=== PATIENT | female | born 1980 | race Caucasian/White ===

== ENCOUNTER → 2017-12-16 | Outpatient (CLI) | payer OTHER ==
--- NOTE | 2017-12-16 08:16 | US ---
EXAMINATION TYPE: US pelvic complete DATE OF EXAM: 12/16/2017 COMPARISON: NONE CLINICAL HISTORY: R10.9 Abdominal Pain. Left pelvic pain for 1 month. Ablation 10 years ago. Tubal li gation 11 years ago TECHNIQUE: Transvaginal (TV) and Transabdominal (TA) . Transabdominal sonographic images of the pel vis were acquired. Transvaginal sonographic images were medically necessary to better assess the fol lowing anatomy: endometrium and ovaries Date of LMP: 10-11 years ago EXAM MEASUREMENTS: Uterus: 9.0 x 4.0 x 5.5 cm Endometrial Stripe: 0.5 cm Right Ovary: unable to visualize Left Ovary: 4.9 x 2.6 x 2.4 cm 1. Uterus: Anteverted Nabothian cysts 2. Endometrium: anechoic area = 1.0 x 0.5 x 0.6cm 3. Right Ovary: Obscured by overlying bowel gas 4. Left Ovary: cystic areas with largest = 2.2 x 2.0 x 2.2cm 5. Bilateral Adnexa: free fluid adjacent to left ovary 6. Posterior cul-de-sac: free fluid IMPRESSION: There is a small amount of free fluid. Nabothian cysts are noted. Small amount of fluid i s present along the endometrium. Consider follow-up, [facility] consult. Left ovarian cystic lesion.
--- NOTE | 2017-12-16 08:20 | US ---
EXAMINATION TYPE: US abdomen complete DATE OF EXAM: 12/16/2017 COMPARISON: NONE CLINICAL HISTORY: R10.9 Abdominal Pain. LLQ pain, constipation, bloating EXAM MEASUREMENTS: Liver Length: 17.8 cm Gallbladder Wall: 0.3 cm CBD: 0.8 cm Spleen: 10.4 cm Right Kidney: 11.1 x 4.1 x 4.6 cm Left Kidney: 10.8 x 4.9 x 5.7 cm Pancreas: visualized portions appear wnl, limited evaluation due to overlying bowel content Liver: upper limits of normal Gallbladder: no evidence of stones Evidence for sonographic Gayle's sign: no CBD: dilated Spleen: wnl Right Kidney: no evidence of hydronephrosis Left Kidney: no evidence of hydronephrosis Upper IVC: wnl Abd Aorta: visualized portions appear wnl The liver is homogenous. The intrahepatic portion of the IVC and proximal abdominal aorta are within normal limits. There is no evidence of cholelithiasis. Common bile duct is unremarkable. The visu alized portions of the pancreas are homogenous. The spleen is unremarkable. Kidneys are symmetric a nd free of hydronephrosis. No renal lesions are seen. IMPRESSION: Somewhat limited exam. Suspect liver is enlarged. Common bile duct is dilated. Consider g astroenterology consult.
== END | disposition home or self-care (01) ==
LOC: RADUSWWP 07:02
PROVIDERS: ATTEND Family Medicine
DX: K83.8 Other specified diseases of biliary tract (principal); N88.8 Other specified noninflammatory disorders of cervix uteri; N83.202 Unspecified ovarian cyst, left side
CPT/HCPCS: 76700; 76856

== ENCOUNTER → 2019-08-03 | Outpatient (CLI) | payer OTHER ==
--- NOTE | 2019-08-03 13:42 | US ---
EXAMINATION TYPE: US transvaginal DATE OF EXAM: 08/03/2019 COMPARISON: Pelvic ultrasound December 16, 2017 CLINICAL HISTORY: N83.209 Unspecified ovarian cyst, unspecified side. TECHNIQUE: Transvaginal (TV). Date of LMP: Patient had ablation 7 years prior EXAM MEASUREMENTS: Uterus: 8.9 x 4.3 x 4.7 cm Endometrial Stripe: 0.4 cm Right Ovary: obscured by overlying bowel gas Left Ovary: 2.1 x 1.1 x 1.1 cm 1. Uterus: heterogeneous 2. Endometrium: fluid in endocervical 3. Right Ovary: obscured by overlying bowel gas 4. Left Ovary: wnl 5. Bilateral Adnexa: wnl 6. Posterior cul-de-sac: wnl Small amount of anechoic fluid in the endometrial canal lower uterine segment. Endometrial stripe is poorly visualized presumed product of ablation. Heterogeneous uterus without focal mass. No free flui d. Right ovary not clearly seen. Left ovary identified with the elongated thin-walled cyst or cystic les ion measuring 2.1 cm long axis. IMPRESSION: Thin-walled elongated 2.1 cm cyst left ovary decreased in size from 2018. No suspicious a dnexal masses on current study. Right ovary not identified similar to prior study.
== END | disposition home or self-care (01) ==
LOC: RADUSWWP 12:57
PROVIDERS: ATTEND Family Medicine
DX: N83.202 Unspecified ovarian cyst, left side (principal)
CPT/HCPCS: 76830

== ENCOUNTER → 2020-08-17 | Outpatient (CLI) | payer OTHER ==
--- NOTE | 2020-08-17 16:25 | US ---
EXAMINATION TYPE: US thyroid st tissue head/neck DATE OF EXAM: 08/17/2020 COMPARISON: NONE CLINICAL HISTORY: E04.9 Goiter. GLAND SIZE: Right Lobe: 3.5 x 1.2 x 0.8 cm Overall Parenchyma: heterogenous Left Lobe: 3.8 x 1.2 x 1.2 cm Overall Parenchyma: heterogeneous Isthmus Thickness: 0.5 cm NODULES RIGHT: # of nodules measured on right: 0 LEFT: # of nodules measured on left: 0 ISTHMUS: # of nodules measured in the isthmus: 0 Bilateral neck scanned, no evidence of lymphadenopathy. Heterogeneous small size thyroid without discrete nodule. IMPRESSION: As above. No worrisome nodules.
== END | disposition home or self-care (01) ==
LOC: RADUSWWP 15:41
PROVIDERS: ATTEND Family Medicine
DX: E04.9 Nontoxic goiter, unspecified (principal)
CPT/HCPCS: 76536

== ENCOUNTER 2021-01-24 10:19 | Emergency (ER) | payer OTHER ==
[2021-01-24 10:30] VITALS: BP 129/74; PULSE 66; RESP 20; TEMP 97.6
--- NOTE | 2021-01-24 10:55 | ED ---
Lower Extremity Injury HPI - General Chief Complaint: Extremity Injury, Lower Stated Complaint: rt foot injury Time Seen by Provider: 01/24/21 10:32 Source: patient, RN notes reviewed Mode of arrival: ambulatory Limitations: no limitations - History of Present Illness Initial Comments: 40-year-old female presents emergency from for outpatient urgent care for possible tendon laceration, foot fracture. Patient reportedly was sitting up for drive so on a table collapsed along with glass on it fell directly under her foot. Patient had a laceration. Patient's tetanus is updated patient was given 1 g Rocephin, x-rays obtained and showed evidence of possible fracture. Patient reports detected orthopedics and was advised to come emergency department. Patient states that she does have some discomfort of the right foot denies any other injuries. - Related Data Allergies Allergy/AdvReac Type Severity Reaction Status Date / Time No Known Allergies Allergy Verified 01/24/21 10:30 Review of Systems ROS Statement: Those systems with pertinent positive or pertinent negative responses have been documented in the HPI. ROS Other: All systems not noted in ROS Statement are negative. Past Medical History Past Medical History: Thyroid Disorder History of Any Multi-Drug Resistant Organisms: None Reported Past Surgical History: Back Surgery, Orthopedic Surgery Additional Past Surgical History / Comment(s): Back fusion. Past Psychological History: Anxiety, Bipolar Smoking Status: Current every day smoker Past Alcohol Use History: None Reported Past Drug Use History: Marijuana General Exam Limitations: no limitations General appearance: alert, in no apparent distress Head exam: Present: atraumatic, normocephalic, normal inspection Respiratory exam: Present: normal lung sounds bilaterally. Absent: respiratory distress, wheezes, rales, rhonchi, stridor Cardiovascular Exam: Present: regular rate, normal rhythm, normal heart sounds. Absent: systolic murmur, diastolic murmur, rubs, gallop, clicks Extremities exam: Present: other (Right foot dorsal aspect there is a 3 cm laceration with sutures in place, pedal pulses are palpable, times palpation over the area) Course Vital Signs 01/24/21 10:27 Temperature 97.6 F Pulse Rate 66 Respiratory 20 Rate Blood Pressure 129/74 O2 Sat by Pulse 98 Oximetry Medical Decision Making - Medical Decision Making X-rays were repeated there is no acute fracture. I did discuss case with on- call orthopedics recommends patient be discharged in stable condition with follow-up on Friday. Disposition Clinical Impression: Laceration of right foot Disposition: HOME SELF-CARE Condition: Stable Instructions (If sedation given, give patient instructions): Laceration (ED), Care For Your Stitches (ED) Additional Instructions: Follow-up with orthopedics on Friday as directed.Please return to the Emergency Department if symptoms worsen or any other concerns. Is patient prescribed a controlled substance at d/c from ED?: No Referrals: Rahul Hughes MD [Primary Care Provider] - 1-2 days Jean Claude Rojas PAC [PHYSICIAN CRIME SPECIALIST] - 1-2 days Jono Ortiz DO [Doctor of Osteopathic Medicine] - 1-2 days Time of Disposition: 11:28
--- NOTE | 2021-01-24 11:24 | XR ---
EXAMINATION TYPE: XR foot complete RT DATE OF EXAM: 01/24/2021 CLINICAL HISTORY: pain TECHNIQUE: Frontal, lateral and oblique images of the right foot are obtained. COMPARISON: None. FINDINGS: There is no acute fracture/dislocation evident. The joint spaces appear within normal [place] its. The overlying soft tissue appears unremarkable. IMPRESSION: There is no acute fracture or dislocation. ICD 10 NO FRACTURE, INITIAL EVALUATION
[2021-01-24] MEDS ORDERED: BACITRACIN OINT 1 EACH PACKET TOPICAL ONE (11:34)
== END 2021-01-24 11:57 | disposition home or self-care (01) ==
LOC: EC 10:19
DX: S91.311A Laceration without foreign body, right foot, initial encounter (principal); F31.9 Bipolar disorder, unspecified; F12.90 Cannabis use, unspecified, uncomplicated; F17.200 Nicotine dependence, unspecified, uncomplicated; W25.XXXA Contact with sharp glass, initial encounter
CPT/HCPCS: 99283

== ENCOUNTER → 2021-07-09 | Outpatient (CLI) | payer OTHER ==
[2021-07-09 18:13] LABS: Basophils # (A) 0.1 k/uL (0-0.2); Basophils % (A) 1 %; Eosinophils # (A) 0.2 k/uL (0-0.7); Eosinophils % (A) 2 %; HCT 39.1 % (34.0-46.0); HGB 13.1 gm/dL (11.4-16.0); Lymphocytes # (A) 2.7 k/uL (1.0-4.8); Lymphocytes % (A) 31 %; MCHC 33.4 g/dL (31.0-37.0); MCV 92.8 fL (80.0-100.0); Mean Platelet Volume 9.4; Monocytes # (A) 0.3 k/uL (0-1.0); Monocytes % (A) 4 %; Neutrophils # (A) 5.5 k/uL (1.3-7.7); Neutrophils % (A) 61 %; Platelet Count 169 k/uL (150-450); RBC 4.21 m/uL (3.80-5.40); RDW 13.1 % (11.5-15.5); WBC 8.9 k/uL (3.8-10.6)
[2021-07-10 00:19] LABS: Hepatitis A Antibody IgM Nonreactive (Nonreactive); Hepatitis B Core IgM Nonreactive (Nonreactive); Hepatitis B Surface Antigen Nonreactive (Nonreactive); Hepatitis C IgG Antibody Nonreactive (Nonreactive)
[2021-07-10 01:50] LABS: ALT 15 U/L (8-44); AST 19 U/L (13-35); African American GFR (CKD) 108.1 (60.0-200.0); Albumin 4.4 g/dL (3.8-4.9); Albumin/Globulin Ratio 2.02 (1.60-3.17); Alkaline Phosphatase 65 U/L (41-126); BUN/Creat Ratio 16.37 Ratio (12.00-20.00); Blood Urea Nitrogen 12.9 mg/dL (9.0-27.0); Calcium 8.9 mg/dL (8.7-10.3); Carbon Dioxide 22.3 mmol/L (20.0-27.5); Chloride 102 mmol/L (96-109); Globulin 2.2 g/dL (1.6-3.3); Glucose 138 mg/dL (70-110); Magnesium 1.9 mg/dL (1.5-2.4); Non-African American GFR(CKD) 93.3 (60.0-200.0); Potassium 3.9 mmol/L (3.5-5.5); Sodium 137 mmol/L (135-145); Total Bilirubin <0.20 mg/dL (0.30-1.20); Total Protein 6.6 g/dL (6.2-8.2)
[2021-07-10 01:57] LABS: HIV 2 AB Non-Reactive (Non-Reactive); HIV AB P24 Non-Reactive (Non-Reactive); HIV P24 AG Non-Reactive (Non-Reactive)
== END | disposition home or self-care (01) ==
LOC: LABMAIN 16:49
PROVIDERS: ATTEND Family Medicine
DX: R63.4 Abnormal weight loss (principal); R05.9 Cough, unspecified
CPT/HCPCS: 36415; 80053; 80074; 83735; 84439; 84443; 85025; 87390

== ENCOUNTER → 2022-01-04 | Outpatient (CLI) | payer OTHER ==
--- NOTE | 2022-01-04 16:23 | US ---
EXAMINATION TYPE: US pelvic complete DATE OF EXAM: 01/04/2022 COMPARISON: US 2018 CLINICAL HISTORY: N83.209 OVARIAN CYST. Pain during intercourse, history of hysterectomy TECHNIQUE: Transabdominal sonographic images of the pelvis were acquired. Date of LMP: Couple years ago EXAM MEASUREMENTS: Right Ovary: 2.4 x 1.3 x 2.1 cm Left Ovary: 5.7 x 4.3 x 5.5 cm 1. Uterus: surgically absent 2. Endometrium: surgically absent 3. Right Ovary: wnl 4. Left Ovary: 2 cysts measuring 3.4 x 2.9 x 3.3 cm and 2.6 x 3.2 x 3.6cm 5. Bilateral Adnexa: wnl 6. Posterior cul-de-sac: wnl IMPRESSION: 1. No evidence for acute pelvic process. 2. Left ovarian cysts appear simple measuring up to 3.4 cm which has increased in size from 2019.
== END | disposition home or self-care (01) ==
LOC: RADUSWWP 15:27
PROVIDERS: ATTEND Family Medicine
DX: N83.202 Unspecified ovarian cyst, left side (principal)
CPT/HCPCS: 76856

== ENCOUNTER → 2022-02-19 | Outpatient (CLI) | payer OTHER ==
--- NOTE | 2022-02-19 14:15 | CT ---
EXAMINATION TYPE: CT abdomen pelvis w con DATE OF EXAM: 02/19/2022 COMPARISON: Pelvic ultrasound 01/04/2022 HISTORY: 41-year-old female R10.32 left lower quadrant Abdominal pain TECHNIQUE: Contiguous axial scanning of the abdomen and pelvis following administration of 100 ml Iso елена 300 IV contrast. Delayed images through the kidneys and coronal/sagittal reconstructions perform ed. CT DLP: 391.5 mGycm Automated exposure control for dose reduction was used. FINDINGS: Heart normal size without pericardial effusion. Lung bases clear without pleural effusion. Liver enlarged at 20.1 cm weight slightly low attenuation. Findings suggest underlying fatty infiltra tion. No focal lesion. Portal venous system is patent. Bile duct upper limits of normal at 5 mm. Gallbladder, adrenal glands, left kidney, spleen, and pancreas appear within normal limits. Punctate 3 mm nonobstructive right lower pole renal calculus. No dilated small bowel, free fluid, free air. Allowing for the paucity of intra-abdominal fat, no def inite mesenteric or retroperitoneal lymphadenopathy is seen. Normal appendix visualized. Oral contrast progressed to the proximal transverse colon. Possible mildl y thickened diverticulum along the mid sigmoid colon, axial images 54. Limited assessment due to pauc ity of intra-abdominal fat. Otherwise, no pericolonic inflammatory change. Bladder is urine distended. Uterus surgically absent. Suspect visualization of both ovaries. Prominen t follicular change suggested in the right ovary which measures up to 3.2 cm. There is a cystic lesio n of the left ovary measuring 4.5 x 3.9 cm. On the patient's pelvic ultrasound of 01/04/2022, 2 cysts were noted measuring 3.4 cm and 3.6 cm. Pelvic ultrasound follow-up to ensure involution. Small pelvic phleboliths. No abnormal fluid collection in the pelvis. Bones: Post surgical change L4-S1 posterior and interbody fusion with corresponding laminectomies. Fa cet arthropathy above at L3-L4 with a trace grade 1 retrolisthesis. IMPRESSION: 1. LIMITED ASSESSMENT DUE TO PAUCITY OF INTRA-ABDOMINAL FAT. THERE MAY BE A MILDLY THICKENED DIVERTIC ULUM ALONG THE MID SIGMOID COLON. CORRELATE CLINICALLY FOR POSSIBLE EARLY ACUTE DIVERTICULITIS CENTER ED AT THIS DIVERTICULUM. NO RUBIO SURROUNDING INFLAMMATORY CHANGE AT THIS TIME. 2. A 4.5 CM CYSTIC LESION OF THE LEFT OVARY, POSSIBLE DOMINANT FOLLICLE OR FUNCTIONAL CYST. THE PATIE NT'S 01/04/2022 PELVIC ULTRASOUND NOTED A 3.6 CM AND 3.4 CM CYST. RECOMMEND FOLLOW-UP ULTRASOUND IN 6- 8 WEEKS TO ENSURE INVOLUTION. 3. HEPATOMEGALY AT 20.1 CM. SUSPECT UNDERLYING MILD FATTY INFILTRATION OF THE LIVER.
== END | disposition home or self-care (01) ==
LOC: RADCTMAIN 11:36
PROVIDERS: ATTEND Family Medicine
DX: K76.0 Fatty (change of) liver, not elsewhere classified (principal)
CPT/HCPCS: 74177; Q9967 ×2

== ENCOUNTER → 2022-11-25 | Outpatient (CLI) | payer BC, OTHER ==
--- NOTE | 2022-11-26 17:39 | MR ---
EXAMINATION TYPE: MR lumbar spine wo/w con DATE OF EXAM: 11/25/2022 COMPARISON: CT abdomen and pelvis March 01, 2022 HISTORY: NO prior, low back pain with BLE weakness and pain, experiencing multiple falls, history of surgery fusion with revision TECHNIQUE: Multiplanar, multisequence images of the lumbar spine is performed without and with IV contrast, util izing 5.5ml mL intravenous Gadavist FINDINGS: Sagittal images of the lumbar spine show vertebral body heights remain satisfactory. Artifa ct from posterior interpedicular rods and screws L4-S1 level with redemonstrated. Artifact from metal lic disc material is identified in L5-S1 levels is again seen. There is grade 1 retrolisthesis of L3 on L4 redemonstrated. Posterior decompression changes in the lower lumbar spine are again seen. There is disc desiccation with moderate disc space narrowing greatest posterior L3-L4 level redemonstrated . The conus medullaris is normal in position and signal ending mid L1 level. The bone marrow signal intensity is within normal limits above and below surgical level. No abnormal postcontrast enhancemen t is seen. Axial images at T12-L1 level appear within normal limits. Axial images at L1-L2 level shows mild broad-based disc bulge minimally effacing the anterior thecal sac. Axial images at L2-L3 level appear within normal limits. Axial images at L3-L4 level show spondylolisthesis with moderate broad-based disc bulge effaces the a nterior thecal sac and mild right-sided neural foraminal narrowing. Axial images at L4-L5 and L5-S1 levels are degraded by susceptibility artifact. There is successful p osterior decompression changes. Neural foramina are patent bilaterally. Paraspinal muscle bulk is preserved. IMPRESSION: Postsurgical change to the lower lumbar spine with successful posterior decompression randa neves. Spondylolisthesis and degenerative change at L3-L4 is now noted as detailed above.
== END | disposition home or self-care (01) ==
LOC: RADMRIMAIN 11:21
PROVIDERS: ATTEND Orthopaedic Surgery Orthopaedic Surgery of the Spine
DX: M43.16 Spondylolisthesis, lumbar region (principal); M47.816 Spondylosis without myelopathy or radiculopathy, lumbar region; M53.86 Other specified dorsopathies, lumbar region; M51.26 Other intervertebral disc displacement, lumbar region; M25.561 Pain in right knee
CPT/HCPCS: 72158; A9585